=== PATIENT | female | born 1965 | race Caucasian/White ===

== ENCOUNTER → 2021-08-30 | Outpatient (CLI) | payer BC | LOC: EXRD 13:56 | DX: R10.32 Left lower quadrant pain (principal) | CPT/HCPCS: 76856 ==

== ENCOUNTER → 2022-01-06 | Outpatient (CLI) | payer BC | LOC: EXRD 15:15 | DX: N20.0 Calculus of kidney (principal) | CPT/HCPCS: 76775 ==